=== PATIENT | female | born 1995 | race African-American/Black ===

== ENCOUNTER 2020-11-05 10:50 | Emergency (ER) | payer OTHER ==
[~2020-11-05] VITALS: Ht 165.1 cm; Wt 131.5 kg
[2020-11-05] MEDS ORDERED: MONTELUKAST SODI4 M1 PO (10:55)
[2020-11-05] MEDS ORDERED: ADVAIR 100-501 EACH IH (10:56)
[2020-11-05] MEDS ORDERED: ACETIC ACID W/H10 ML OTIC (12:10)
== END 2020-11-05 12:24 | disposition home or self-care (01) ==
LOC: ER 10:50
DX: H60.8X1 Other otitis externa, right ear (principal)